=== PATIENT | male | born 1990 | race Two or more races ===

== ENCOUNTER 2020-06-13 01:58 | Emergency (ER) | payer SELFPAY ==
[~2020-06-13] VITALS: Ht 165.1 cm; Wt 84.0 kg
[2020-06-13 02:10] VITALS: BP 166/96
--- NOTE | 2020-06-13 02:12 | PHYS DOC ---
Past Medical History Past Medical History: No Pertinent History Drug Use: None General Adult EDM: Chief Complaint: LACERATION/AVULSION HPI: HPI: Patient is a 30 year old right-handed male who was working with a tub and crushed his left pinky finger between the tub and some tile. Sustained a laceration. Patient complains of moderate at rest and severe in intensity pain with range of motion of left pinky. Patient has laceration with bleeding is controlled. Tingling on the ulnar side of the left pinky. Review of Systems: Review of Systems: Constitutional: Denies fever or chills. [] Eyes: Denies change in visual acuity. [] HENT: Denies nasal congestion or sore throat. [] Respiratory: Denies cough or shortness of breath. [] Cardiovascular: Denies chest pain or edema. [] GI: Denies abdominal pain, nausea, vomiting, bloody stools or diarrhea. [] : Denies dysuria. [] Musculoskeletal: Denies back pain or joint pain. [] Integument: Denies rash. [] Neurologic: Denies headache, focal weakness but has some decreased sensation to the left pinky Endocrine: Denies polyuria or polydipsia. [] Lymphatic: Denies swollen glands. [] Psychiatric: Denies depression or anxiety. [] Heart Score: Risk Factors: Risk Factors: DM, Current or recent (<one month) smoker, HTN, HLP, family history of CAD, obesity. Risk Scores: Score 0 - 3: 2.5% MACE over next 6 weeks - Discharge Home Score 4 - 6: 20.3% MACE over next 6 weeks - Admit for Clinical Observation Score 7 - 10: 72.7% MACE over next 6 weeks - Early Invasive Strategies Physical Exam: PE: Constitutional: Well developed, well nourished, no acute distress, non-toxic appearance. [] HENT: Normocephalic, atraumatic, bilateral external ears normal, no trismus nose normal. [] Eyes: PERRLA, EOMI, conjunctiva normal, no discharge. [] Neck: Normal range of motion, no tenderness, supple, no stridor. [] Cardiovascular:Heart rate regular rhythm, peripheral pulses intact cap refill brisk Lungs & Thorax: Bilateral breath sounds clear, no respiratory distress Abdomen: Soft nondistended Skin: 4 cm flap laceration to the ulnar and extensor side of the left knee near the PIP and middle phalanx, tender to palpate this area with limited range of motion Back: No tenderness, no CVA tenderness. [] Extremities: No tenderness, no cyanosis, no clubbing, ROM intact, no edema. [] Neurologic: Alert and oriented X 3, limited range of motion due to pain in the l eft pinky finger with decreased sensation on the left distal pinky ulnar side. Psychologic: Affect normal, judgement normal, mood normal. [] Current Patient Data: Vital Signs: Vital Signs Date Time Temp Pulse Resp B/P (MAP) Pulse Ox O2 Delivery O2 Flow Rate FiO2 06/13/20 02:10 99.7 116 18 166/96 (119) 97 Room Air 99.7 EKG: EKG: [] Radiology/Procedures: Radiology/Procedures: [facility] [address] [place] [address] IMAGING REPORT Signed PATIENT: JENNA CEJA ACCOUNT: [id number] : 1990 LOCATION: ER AGE: 30 SEX: M EXAM STATUS: REG ER ORD. PHYSICIAN: KJ VALENTINE MD REASON: CRUSH/LACERATION TO LEFT PINKY PROCEDURE: FINGER(S) LEFT Left fifth finger x-rays 3 views HISTORY: Across laceration left fifth finger FINDINGS: There is a laceration along the ulnar sided aspect of the fifth digit. No opaque foreign body evident. No fracture. No dislocation. IMPRESSION: No acute osseous injury. Laceration of the fifth finger. Electronically signed by: Magalie Gómez MD (06/13/2020 3:40 AM) [facility] [place] DICTATED and SIGNED BY: MAGALIE GÓMEZ MD DATE: 06/13/20 0340 [] Procedure note: Indication laceration left pinky finger Digital block: After obtaining informed consent a digital block was performed on the left pinky finger using a dorsal approach. The skin was prepped with alcohol prep and then a digital block was performed with infusion of 4 cc of 0.5% bupivacaine, good anesthesia was obtained Laceration repair: 4 cm laceration to the left pinky was repaired after the digital block was performed. The wound was then copiously irrigated with normal saline and then explored. No obvious tendon laceration was seen. The wound was then repaired with 9 4.0 simple interrupted Prolene sutures. Good cosmesis was obtained. A splint and dressing was applied by nurses. Course & Med Decision Making: Course & Med Decision Making Pertinent Labs and Imaging studies reviewed. (See chart for details) [] 21-year-old male presents with a laceration to his left pinky finger. Laceration was repaired no obvious tendon injury was seen. A splint has been ordered. Patient will give referrals to orthopedics for follow-up. Dragon Disclaimer: Dragon Disclaimer: This electronic medical record was generated, in whole or in part, using a voice recognition dictation system. Departure Departure Impression: Primary Impression: Laceration of left little finger Disposition: 01 HOME, SELF-CARE Condition: STABLE Referrals: CHARLI ANTOINE II, MD OR A HAND SURGEON IN 3-5 DAYS. SUTURES OUT IN 12 DAYS HERE Patient Instructions: Laceration Care, Adult Additional Instructions: EMERGENCY DEPARTMENT GENERAL DISCHARGE INSTRUCTIONS THANK YOU for coming to [facility] Emergency Department (ED) today and trusting us with your care. We trust that you had a positive experience in our Emergency Department. If you wish to speak to the department Management you can contact the fabrication department supervisor at . YOUR FOLLOW UP INSTRUCTIONS ARE FOLLOWS: Do you have a private doctor? If you do not have a private doctor, please ask for a resource list of physicians or clinics that may be able to assist you with follow up care. The Emergency Physician has interpreted your x-rays. The X-ray specialist will also review them. If there is a change in the findings you will be notified in 48 hours when at all possible. A lab test or lab culture may have been done, your results will be reviewed and you will be notified if you need a change in treatment. ADDITIONAL INSTRUCTIONS AND INFORMATION Your care today has been supervised by a physician who is specially trained in emergency care. Many problems require more than one evaluation for a complete diagnosis and treatment. We recommend that you schedule your follow up appointment as recommended to ensure complete treatment of your illness or injury. If you are unable to obtain follow up care and continue to have a problem, or if your condition worsens we recommend that you return to the ED. We are not able to safely determine your condition over the phone nor are we able to give sound medical advice over the phone. For these safety reasons, if you call for medical advice we will ask you to come to the ED for further evaluation If you have any questions regarding these discharge instructions please call the ED at . SAFETY INFORMATION In the interest of safety, wellness, and injury prevention; we encourage you to wear your seatbelt, if you smoke; quit smoking, and we encourage your family to use protective helmet for bicycling and other sporting events that present an increased risk for head injury. IF YOUR SYMPTOMS WORSEN OR NEW SYMPTOMS DEVELOP, OR YOU HAVE CONCERNS ABOUT YOUR CONDITION; OR IF YOUR CONDITION WORSENS WHILE YOU ARE WAITING FOR YOUR FOLLOW UP APPOINTMENT; EITHER CONTACT YOUR PRIMARY CARE DOCTOR, THE PHYSICIAN WHOSE NAME AND NUMBER YOU WERE GIVEN, OR RETURN TO THE ED IMMEDIATELY. Scripts Cephalexin (KEFLEX) 500 Mg Capsule 1 CAP PO TID for 10 Days, #30 CAP 0 Refills Prov: KJ VALENTINE MD 06/13/20 KJ VALENTINE MD Jun 13, 2020 02:12
[2020-06-13] MEDS ORDERED: TETANUS AND DIPHTHERIA TOX/PF 0.5 ML DISP.SYRIN. VAX IM ONE (02:30)
[2020-06-13] MEDS ORDERED: BUPIVACAINE MPF 0.5% 30 ML VIAL. INJ ONE (02:30)
--- NOTE | 2020-06-13 03:43 | RAD ---
Left fifth finger x-rays 3 views HISTORY: Across laceration left fifth finger FINDINGS: There is a laceration along the ulnar sided aspect of the fifth digit. No opaque foreign body evident. No fracture. No dislocation. IMPRESSION: No acute osseous injury. Laceration of the fifth finger. Electronically signed by: Rocael Gómez MD (06/13/2020 3:40 AM) [facility]
[2020-06-13] MEDS ORDERED: CEPH-264 PO (03:56)
== END 2020-06-13 04:05 | disposition home or self-care (01) ==
LOC: ER 01:58
DX: S61.217A Laceration without foreign body of left little finger without damage to nail, initial encounter (principal); R20.2 Paresthesia of skin; W23.0XXA Caught, crushed, jammed, or pinched between moving objects, initial encounter; Y93.89 Activity, other specified; Y92.89 Other specified places as the place of occurrence of the external cause; Y99.8 Other external cause status
CPT/HCPCS: 12002; 73140; 90471; 90714; 99283; J3490